=== PATIENT | male | born 1935 | race Caucasian/White ===

== ENCOUNTER 2016-11-13 10:17 | Day surgery (SDC) | payer MEDICARE ==
[2016-11-11 10:51] VITALS: BMI 31.8
[~2016-11-13 10:17] MED LIST: DEXAMETHASONE SOD PHOSPHATE 4 MG/ML 1 ML VIAL IV ONE; FAMOTIDINE 20 MG/2 ML VIAL IV ONE; LACTATED RINGERS 1,000 ML IV SCH; MIDAZOLAM 2 MG/2 ML VIAL IV PRN; ONDANSETRON 4 MG/2 ML VIAL IVP ONE; ceFAZolin 1,000 MG in DEXTROSE/WATER 1 50ML.BAG IV ONE
[2016-11-13] MEDS: OXYMETAZOLINE 0.05% NASL SPRAY 15 ML NASAL ONE ×5 (11:25→11:54)
[2016-11-13] MEDS ORDERED: LIDOCAINE 1% 20 ML VIAL (10MG/ML) FOR IV START INTRADERMA ONE (11:38)
[2016-11-13] MEDS ORDERED: DEXAMETHASONE SOD PHOS (MDV) 100 MG/10 ML VIAL IV ONE (11:44)
[2016-11-13] MEDS ORDERED: PROPOFOL 10 MG/ML 20 ML VIAL IV ONE (12:27)
[2016-11-13] MEDS ORDERED: SUCCINYLCHOLINE CHLORIDE 100 MG/5 ML SYR IV ONE (12:27)
[2016-11-13] MEDS ORDERED: fentaNYL (PF) 50 MCG/ML 2 ML AMP ONE (12:27)
[2016-11-13] MEDS ORDERED: LIDOCAINE 1% INJ 10MG/ML (20 ML MDV) ONE (12:27)
[2016-11-13] MEDS ORDERED: LIDOCAINE 1%-EPI 1:100,000 20 ML VIAL SUBMUCOSAL ONE (12:47)
[2016-11-13] MEDS ORDERED: LACTATED RINGERS 1,000 ML IV ONE (13:18)
--- NOTE | 2016-11-13 13:31 | P.OP ---
Date of Procedure: 11/13/16 Preoperative Diagnosis: Chronic sinusitis Sinonasal polyposis Postoperative Diagnosis: Same Procedure(s) Performed: Bilateral endoscopic sinus surgery including bilateral maxillary antrostomy with removal of tissue from maxillary sinuses, bilateral anterior and posterior ethmoidectomy, bilateral frontal sinusotomy and bilateral sphenoidotomy all with polypectomies Anesthesia: HEIDI Surgeon: Migel Whitten Estimated Blood Loss (ml): 200 Pathology: other (Sinus contents bilateral) Condition: stable Disposition: PACU Indications for Procedure: Patient has had long-term difficulties with nasal airway obstruction and congestion and recurrent sinusitis with sinonasal polyposis noted on physical exam and on computed tomography scan. Operative Findings: Bilateral diffuse sinonasal polyps involving the maxillary and ethmoid sinuses mainly but also minimally in the frontal and sphenoid sinuses the polyps were quite severe and extensive. The middle turbinate on the right was missing and there was a and inferior turbinal maxillary antrostomy on the right noted otherwise. Description of Procedure: The patient was brought in the operative suite and placed in a supine position. The patient underwent induction of general anesthesia with oral endotracheal intubation without difficulty. The patient was prepped and draped in usual aseptic fashion. Original in the operating field for monitoring throughout the case and computed tomography scan was on the computer screen throughout the case for review. 1% lidocaine with [id number] epinephrine was infused submucosally lateral nasal wall bilaterally as well as into the anterior tip of the left middle turbinate and lateral nasal wall bilaterally. His left to work for 7 minutes vasoconstrictive effect and 0 endoscopic examination was performed bilaterally. Beginning on the left the gross polyps were debrided with microdebrider medial and lateral to the middle turbinate. The middle turbinate was intact although there was a rent in this superiorly. Medial to the middle turbinate care was taken to stay below the superior turbinate and this was dissected all the way back to the sphenoid ostium which was opened although was already somewhat open and polyps removed. The middle turbinate was lateralized is a medialized and the maxillary antrostomy was enlarged the expense the anterior and posterior fontanelle. This was obstructed. There were polyps in the sinus which were removed. The left anterior posterior ethmoidectomy performed with the polypectomy also. Frontal sinusotomy was performed with balloon sinus plasty with exploration with the [employer] System[employer] system and the in's frontal sinus was explored. Attention was then turned to the right where the procedures were followed as they were on the left other than the fact that the middle turbinate was not present likely from his previous procedure. Therefore gross polypectomy was performed with maxillary antrostomy with removal of polyps from exercise anterior posterior ethmoidectomy sphenoidotomy and frontal sinusotomy with removal of tissue from the sphenoid sinus and expiration the right frontal sinus. Once this completed accommodation of standard and firm nasal pore nasal dressing direct visualization. The patient was suctioned in oral gastric fashion. The patient was allowed to emerge from general anesthesia having tolerated procedure well. He was excised in the operative suite and transferred postoperative recovery area in satisfactory condition.
[2016-11-13 13:44] VITALS: TEMP 98.2
[2016-11-13] MEDS ORDERED: LEVALBUTEROL NEB 1.25 MG/3 ML AMP INHALATION ONE (13:45)
[2016-11-13] MEDS: HYDROmorphone 1 MG/ML 1 ML SYRINGE IVP PRN ×2 (13:50→13:56)
[2016-11-13 14:05] VITALS: RESP 18
[2016-11-13] MEDS ORDERED: SYMBICORT 160-4.5 MCG INHALER INHALATION STA (14:10)
[2016-11-13 15:48] VITALS: BP 123/62; PULSE 80
== END 2016-11-13 16:50 | disposition home or self-care (01) ==
LOC: OR 10:17
PROVIDERS: ATTEND Otolaryngology
DX: J32.4 Chronic pansinusitis (principal); J33.8 Other polyp of sinus; J34.3 Hypertrophy of nasal turbinates; J45.909 Unspecified asthma, uncomplicated; J44.9 Chronic obstructive pulmonary disease, unspecified; I10 Essential (primary) hypertension; M19.90 Unspecified osteoarthritis, unspecified site; Z85.46 Personal history of malignant neoplasm of prostate; Z85.118 Personal history of other malignant neoplasm of bronchus and lung; Z79.51 Long term (current) use of inhaled steroids; Z79.52 Long term (current) use of systemic steroids; Z79.899 Other long term (current) drug therapy
CPT/HCPCS: 88305; 31255; 31276; J2250; J2405; J2001; J3010; J1170; J0690; J1100; J0330; J2704

== ENCOUNTER → 2021-08-03 | Outpatient (CLI) | payer MEDICARE ==
--- NOTE | 2021-08-03 14:44 | FL ---
EXAMINATION TYPE: FL barium swallow w video DATE OF EXAM: 08/03/2021 COMPARISON: NONE HISTORY: Dysphasia TECHNIQUE: Fluoroscopy. FINDINGS: Fluoroscopic guidance was provided for the procedure performed in conjunction with the [facility] pathology department. Please see complete report forthcoming from the Speech Pathology departmen t. Various consistencies from thin liquid to solids were administered. Fluoroscopy time 44 seconds. Number of images: 0. No aspiration or penetration was evident. No significant pooling was observed in the vallecula. There was normal propulsion of the bolus. IMPRESSION: 1. Normal modified barium swallow.
== END | disposition home or self-care (01) ==
LOC: LABWHC1 11:54
PROVIDERS: ATTEND Internal Medicine
DX: R09.89 Other specified symptoms and signs involving the circulatory and respiratory systems (principal)
CPT/HCPCS: 74230

== ENCOUNTER → 2021-08-27 | Outpatient (CLI) | payer MEDICARE | END | disposition home or self-care (01) | LOC: LABWHC1 11:21 | PROVIDERS: ATTEND Urology | DX: C61 Malignant neoplasm of prostate (principal) | CPT/HCPCS: 36415; 82040; 84153; 84270; 84403 ==

== ENCOUNTER → 2021-08-27 | Outpatient (CLI) | payer MEDICARE ==
--- NOTE | 2021-08-27 12:06 | FL ---
EXAMINATION TYPE: FL barium swallow DATE OF EXAM: 08/27/2021 CLINICAL INDICATION: 85-year-old male dysphagia, R13.10, rule out aspiration. Typical sensation in th roat along with coughing during eating. COMPARISON: 08/03/2021 Total Fluoroscopy Time: 3 minutes 22 seconds 48 images obtained. FINDINGS: A couple episodes of mild aspiration are noted, one very upright swallow and a second during prone sw allowing. The hypopharyngeal anatomy is preserved. The thoracic portion has a normal course and caliber. Mild tertiary peristaltic waves are noted. Blun bashir secondary stripping waves with slight delay in complete clearance of contrast from the lower esop hagus. The mucosa is normal and no persistent filling defect is encountered. There is a small sliding hiatal hernia. Gastroesophageal reflux was not seen during the course of the exam. We note some surgical clips at the right hilum and right lung. IMPRESSION: 1. A couple episodes of mild silent aspiration visualized during the course of the study. If this is felt to be clinically significant, consider follow-up with speech pathology. 2. Mild age-related esophageal dysmotility. 3. Small sliding hiatal hernia.
== END | disposition home or self-care (01) ==
LOC: RADUSWWP 10:26
PROVIDERS: ATTEND Otolaryngology
DX: K44.9 Diaphragmatic hernia without obstruction or gangrene (principal); K22.4 Dyskinesia of esophagus
CPT/HCPCS: 74220

== ENCOUNTER 2023-08-02 18:19 | Inpatient (IN) | payer MEDICARE ==
[2023-08-02] MEDS ORDERED: ACETAMINOPHEN TAB 325 MG TAB PO PRN (19:02)
[2023-08-02] MEDS ORDERED: NALOXONE 0.4 MG/ML 1 ML VIAL IV PRN (19:02)
--- NOTE | 2023-08-02 19:02 | ED ---
General Adult HPI - General Chief complaint: Arrhythmia/Palpitations Stated complaint: bradycardia Time Seen by Provider: 08/02/23 18:22 Source: patient, RN/MD, EMS, old records reviewed Mode of arrival: EMS Limitations: no limitations - History of Present Illness Initial comments: Patient is a pleasant 87-year-old male presenting to the emergency Department with bradycardia. Onset of symptoms was 2 days ago. Patient did complain of some small episodes of skipping in his chest. Patient checked his heart rate at home and was at 40. Patient did go to the emergency department and this was confirmed. Patient did not want to stay however did return again today. Patient again had episodes with heart rate dropping into the 40s. Patient denies lightheadedness despite being documented otherwise differently. Patient denies chest pain. No dyspnea. No weakness. Patient does see Dr. Alberto with cardiology. - Related Data Home Medications Medication Instructions Recorded Confirmed Ascorbic Acid [Vitamin C] 500 mg PO DAILY 11/11/16 03/16/18 B Complex & C No.20/Folic Acid 1 mg PO DAILY 11/11/16 03/16/18 [Nephrocaps Softgel] Calcium/Magnesium/Zinc 1 each PO DAILY 11/11/16 03/16/18 [Nyshkcw-Rihltcnav-Uxpd Tablet] Cholecalciferol [Vitamin D3] 1,000 unit PO DAILY 11/11/16 03/16/18 Cinnamon Bark [Cinnamon] 500 mg PO DAILY 11/11/16 03/16/18 Fluticasone Propion/Salmeterol 1 inhalation PO BID 11/11/16 03/16/18 [Advair 250-50 Diskus] L.acidoph,Paracasei, B.lactis 1 each PO DAILY 11/11/16 03/16/18 [Probiotic] Metoprolol Succinate [Toprol XL] 25 mg PO DAILY 11/11/16 03/16/18 Montelukast [Singulair] 10 mg PO HS 11/11/16 03/16/18 Steele-3 Fatty Acids [Steele-3] 500 mg PO DAILY 11/11/16 03/16/18 Potassium Chloride [Klor-Con] 10 meq PO BID 11/11/16 03/16/18 Spironolactone [Aldactone] 25 mg PO HS 11/11/16 03/16/18 Valsartan 320 mg PO DAILY 11/11/16 03/16/18 amLODIPine [Norvasc] 10 mg PO DAILY 11/11/16 03/16/18 cloNIDine HCL [Catapres] 0.1 mg PO BID 11/11/16 03/16/18 hydrALAZINE HCL [Apresoline] 50 mg PO BID 11/11/16 03/16/18 Leuprolide Acetate [Lupron Depot] 45 mg IM Q180D 11/12/16 03/16/18 Previous Rx's Medication Instructions Recorded Doxycycline [Vibramycin] 100 mg PO BID #28 capsule 03/09/18 Allergies Allergy/AdvReac Type Severity Reaction Status Date / Time Influenza Virus Vaccines Allergy Rash/Hives Verified 03/16/18 09:43 Review of Systems ROS Statement: Those systems with pertinent positive or pertinent negative responses have been documented in the HPI. ROS Other: All systems not noted in ROS Statement are negative. Constitutional: Denies: fever Eyes: Denies: eye pain Respiratory: Denies: dyspnea Cardiovascular: Reports: as per HPI, palpitations. Denies: chest pain Past Medical History Past Medical History: Asthma, Cancer, Hyperlipidemia, Hypertension, Prostate Disorder Additional Past Medical History / Comment(s): HX LUNG AND PROSTATE CANCER. HX HEART MURMUR. HX LBBB,lt. butt. wound History of Any Multi-Drug Resistant Organisms: None Reported Past Surgical History: Cholecystectomy, Joint Replacement Additional Past Surgical History / Comment(s): LT ANGELINA, COLONOSCOPY, BILAT CATARACTS REMOVED, RT LUNG LOBECTOMY Past Anesthesia/Blood Transfusion Reactions: Previous Problems w/ Anesthesia, Motion Sickness Additional Past Anesthesia/Blood Transfusion Reaction / Comment(s): PT STATES "PROLONGED AWAKENING" Past Psychological History: No Psychological Hx Reported Past Alcohol Use History: Occasional Past Drug Use History: None Reported - Past Family History Mother Family Medical History: No Reported History General Exam Limitations: no limitations General appearance: alert, in no apparent distress Head exam: Present: normocephalic Eye exam: Present: normal appearance Neck exam: Present: normal inspection Respiratory exam: Present: normal lung sounds bilaterally Cardiovascular Exam: Present: regular rate, normal rhythm GI/Abdominal exam: Present: soft. Absent: tenderness Extremities exam: Present: normal inspection. Absent: pedal edema, calf tenderness Neurological exam: Present: alert Psychiatric exam: Present: normal affect, normal mood Skin exam: Present: normal color Course Vital Signs 08/02/23 18:49 Temperature 97.6 F Pulse Rate 86 Respiratory 19 Rate Blood Pressure 153/74 O2 Sat by Pulse 91 L Oximetry Medical Decision Making - Medical Decision Making Was pt. sent in by a medical professional or institution (, MARISA, HAND SIGN WRITER, urgent care, hospital, or fci...) When possible be specific @ -Patient was sent from [facility] Did you speak to anyone other than the patient for history (EMS, parent, family, police, friend...)? What history was obtained from this source @ -Did speak with transferring physician Dr. Quiles Did you review nursing and triage notes (agree or disagree)? Why? @ -I reviewed and agree with nursing and triage notes Were old charts reviewed (outside hosp., previous admission, EMS record, old EKG, old radiological studies, urgent care reports/EKG's, fci records)? Report findings @ -Chart reviewed from [facility] Differential Diagnosis (chest pain, altered mental status, abdominal pain women, abdominal pain men, vaginal bleeding, weakness, fever, dyspnea, syncope, headache, dizziness, GI bleed, back pain, seizure, CVA, palpatations, mental health, musculoskeletal)? @ -Differential Palpitations Ventricular arrhythmias, atrial arrhythmias, myocardial infarction, anemia, thyrotoxicosis, electrolyte imbalance, hypokalemia, pulmonary embolism, pulmonary disease, drugs, alcohol, anxiety, stress.... This is not meant to be an all-inclusive list. EKG interpreted by me (3pts min.). @ -As above X-rays interpreted by me (1pt min.). @ -None done CT interpreted by me (1pt min.). @ -None done U/S interpreted by me (1pt. min.). @ -None done What testing was considered but not performed or refused? (CT, X-rays, U/S, labs)? Why? @ -None What meds were considered but not given or refused? Why? @ -None Did you discuss the management of the patient with other professionals (professionals i.e. , MARISA, HAND SIGN WRITER, lab, RT, psych nurse, social work supervisor, plastics heat welder, teacher, senior administrative services officer, nurse outreach case manager)? Give summary @ -Case was discussed with practitioner Jefe, who will admit covering hospital call. Was smoking cessation discussed for >3mins.? @ -No Was critical care preformed (if so, how long)? @ -No Were there social determinants of health that impacted care today? How? (Homelessness, low income, unemployed, alcoholism, drug addiction, transportation, low edu. Level, literacy, decrease access to med. care, fdc, rehab)? @ -No Was there de-escalation of care discussed even if they declined (Discuss DNR or withdrawal of care, Hospice)? DNR status @ -No What co-morbidities impacted this encounter? (DM, HTN, Smoking, COPD, CAD, Cancer, CVA, ARF, Chemo, Hep., AIDS, mental health diagnosis, sleep apnea, morbid obesity)? @ -None Was patient admitted / discharged? Hospital course, mention meds given and route, prescriptions, significant lab abnormalities, going to OR and other pertinent info. @ -Patient will be admitted with cardiac consults. Admission orders written. Patient will be kept on monitor. Undiagnosed new problem with uncertain prognosis? @ -No Drug Therapy requiring intensive monitoring for toxicity (Heparin, Nitro, Insulin, Cardizem)? @ -No Were any procedures done? @ -No Diagnosis/symptom? @ -Bradycardia Acute, or Chronic, or Acute on Chronic? @ -Acute Uncomplicated (without systemic symptoms) or Complicated (systemic symptoms)? @ -default Side effects of treatment? @ -No Exacerbation, Progression, or Severe Exacerbation? @ -No Poses a threat to life or bodily function? How? (Chest pain, [place], [place], pneumonia, PE, COPD, DKA, ARF, appy, cholecystitis, CVA, Diverticulitis, Homicidal, Suicidal, threat to staff... and all critical care pts) @ -No Disposition Clinical Impression: Bradycardia Disposition: ADMITTED IP TO THIS HOSP Is patient prescribed a controlled substance at d/c from ED?: No Referrals: None,Stated [Primary Care Provider] - 1-2 days Time of Disposition: 19:02
[2023-08-02] MEDS: SODIUM CHLORIDE 0.9% 1,000 ML IV SCH (20:06)
--- NOTE | 2023-08-03 07:36 | XR ---
EXAMINATION TYPE: XR chest 1V DATE OF EXAM: 08/03/2023 COMPARISON: None INDICATION: Bradycardia TECHNIQUE: Single frontal view of the chest is obtained. Patient is rotated to the right FINDINGS: The heart size is normal. The pulmonary vasculature is normal. Minimal infiltrate is along the lateral right diaphragm. IMPRESSION: 1. Minimal atelectasis right lateral lung field.
[2023-08-03] MEDS ORDERED: BENZONATATE 100 MG CAP PO PRN (09:04)
[2023-08-03] MEDS ORDERED: NON FORMULARY DRUG (Levalbuterol Hfa Inhaler 200 PUFF/9 GM Gm) INHALATION PRN (09:04)
[2023-08-03] MEDS ORDERED: LEUPROLIDE ACETATE 45 MG SYRINGEKIT IM SCH (09:15)
[2023-08-03 09:52] LABS: Basophils % (A) 1 %; Eosinophils # (A) 0.4 k/uL (0-0.7); Eosinophils % (A) 4 %; HCT 45.8 % (39.0-53.0); HGB 15.3 gm/dL (13.0-17.5); Lymphocytes # (A) 1.7 k/uL (1.0-4.8); Lymphocytes % (A) 17 %; MCH 29.5 pg (25.0-35.0); MCHC 33.5 g/dL (31.0-37.0); MCV 88.2 fL (80.0-100.0); Mean Platelet Volume 8.9; Monocytes # (A) 0.6 k/uL (0-1.0); Monocytes % (A) 6 %; Neutrophils # (A) 6.9 k/uL (1.3-7.7); Neutrophils % (A) 70 %; Platelet Count 207 k/uL (150-450); RBC 5.19 m/uL (4.30-5.90); RDW 14.3 % (11.5-15.5); WBC 9.9 k/uL (3.8-10.6)
[2023-08-03] MEDS: ASPIRIN 81 MG PO SCH (09:58)
[2023-08-03] MEDS: VALSARTAN 40 MG TAB PO SCH (09:58)
[2023-08-03 10:07] LABS: Prothrombin Time 11.2 sec (10.0-12.5)
[2023-08-03 10:56] LABS: ALT 26 U/L (4-49); AST 27 U/L (17-59); African American GFR (CKD) >90 (>60 ml/min/1.73 sqM); Albumin 3.5 g/dL (3.5-5.0); Albumin/Globulin Ratio 1.3; Alkaline Phosphatase 83 U/L (38-126); Anion Gap 10 mmol/L; Blood Urea Nitrogen 19 mg/dL (9-20); Calcium 9.1 mg/dL (8.4-10.2); Carbon Dioxide 26 mmol/L (22-30); Chloride 104 mmol/L (98-107); Globulin 2.6 g/dL; Glucose 170 mg/dL (74-99); Magnesium 1.8 mg/dL (1.6-2.3); Non-African American GFR(CKD) 87 (>60 ml/min/1.73 sqM); Phosphorus 3.5 mg/dL (2.5-4.5); Sodium 140 mmol/L (137-145); Total Bilirubin 0.8 mg/dL (0.2-1.3); Total Protein 6.1 g/dL (6.3-8.2)
--- NOTE | 2023-08-03 11:10 | P.CRDCN ---
History of Present Illness Consult date: 08/03/23 Chief complaint: Palpitations History of present illness: The patient is an 87-year-old gentleman who sees regularly regular basis with a past medical history significant for hypertension and dyslipidemia was transferred from [facility] for further evaluation of the bradycardia. The patient was checking his pulse at home using pulse oximetry and he noticed that his pulse has been in the 40s. He did not have any dizziness or lightheadedness and no presyncope or syncope and no symptoms of chest pain or chest discomfort but he was experiencing intermittent episodes of palpitation. He decided to come in to check himself. He underwent further evaluation including an EKG and that showed sinus mechanism with sinus arrhythmia. I did review the previous medical record from [facility] and that showed also sinus mechanism was ill LBBB and echo be. During the hospital stay here [facility] he did not have any bradycardia. His heart rate has been in the 60s and 70s review is on beta grayson with metoprolol that is on hold at this point. The examination is remarkable for regular rhythm with significant systolic murmur at the right upper sternal border consistent with aortic stenosis murmur likely and clear breathing sounds bilaterally and no lower extremities edema noted. Assessment Bradycardia by history. The patient likely was not bradycardic and the monitor detecting bradycardia because of ectopy Abnormal EKG with LBBB. Hypertension Dyslipidemia Cardiac murmur Plan Obtain further cardiac testing including TSH and free T4 Obtain an echocardiogram was Doppler Continue holding beta grayson at this point Monitor the rhythm overnight He might benefit from an event monitor as an outpatient Follow-up with the patient Past Medical History Past Medical History: Asthma, Cancer, Hyperlipidemia, Hypertension, Prostate Disorder Additional Past Medical History / Comment(s): HX LUNG AND PROSTATE CANCER. HX HEART MURMUR. HX LBBB,lt. butt. wound History of Any Multi-Drug Resistant Organisms: None Reported Past Surgical History: Cholecystectomy, Joint Replacement Additional Past Surgical History / Comment(s): LT ANGELINA, COLONOSCOPY, BILAT CATARACTS REMOVED, RT LUNG LOBECTOMY Past Anesthesia/Blood Transfusion Reactions: Previous Problems w/ Anesthesia, Motion Sickness Additional Past Anesthesia/Blood Transfusion Reaction / Comment(s): PT STATES "PROLONGED AWAKENING" Past Psychological History: No Psychological Hx Reported Past Alcohol Use History: Occasional Past Drug Use History: None Reported - Past Family History Mother Family Medical History: No Reported History Medications and Allergies Home Medications Medication Instructions Recorded Confirmed Type Cinnamon Bark [Cinnamon] 1,000 mg PO HS 11/11/16 08/02/23 History L.acidoph,Paracasei, B.lactis 1 cap PO HS 11/11/16 08/02/23 History [Probiotic] Montelukast [Singulair] 10 mg PO HS 11/11/16 08/02/23 History Spironolactone [Aldactone] 25 mg PO DAILY 11/11/16 08/02/23 History amLODIPine [Norvasc] 10 mg PO DIRECTED 11/11/16 08/02/23 History Leuprolide Acetate [Lupron Depot] 1 dose IM Q180D 11/12/16 08/02/23 History Aspirin EC [Ecotrin Low Dose] 81 mg PO DAILY 08/02/23 08/02/23 History Atorvastatin [Lipitor] 10 mg PO HS 08/02/23 08/02/23 History Benzonatate [Tessalon Perles] 100 mg PO DIRECTED PRN 08/02/23 08/02/23 History Cholecalciferol [Vitamin D3 (25 25 mcg PO DAILY 08/02/23 08/02/23 History Mcg = 1000 Iu)] Fluticasone/Umeclidin/Vilanter 1 puff INHALATION RT-DAILY 08/02/23 08/02/23 History [Trelegy Ellipta 200-62.5-25] Iron Glycinate 28mg 28 mg PO HS 08/02/23 08/02/23 History Levalbuterol Hfa Inhaler [Xopenex 1 puff INHALATION DIRECTED PRN 08/02/23 08/02/23 History Hfa Inhaler] Levocetirizine Dihydrochloride 5 mg PO HS 08/02/23 08/02/23 History [Xyzal] Magnesium Citrate 200mg 200 mg PO DAILY 08/02/23 08/02/23 History Metoprolol Succinate [Metoprolol 25 mg PO DAILY 08/02/23 08/02/23 History Succinate ER] Multivitamins, Thera [Multivitamin 1 tab PO DAILY 08/02/23 08/02/23 History (formulary)] Valsartan 40 mg PO DAILY 08/02/23 08/02/23 History Vit C/E/Zn/Coppr/Lutein/Zeaxan 1 cap PO DAILY 08/02/23 08/02/23 History [Preservision Areds 2 Softgel] Allergies Allergy/AdvReac Type Severity Reaction Status Date / Time Influenza Virus Vaccines Allergy Rash/Hives Verified 08/02/23 19:40 albuterol AdvReac heart Verified 08/02/23 20:05 flutters Physical Exam Vitals: Vital Signs Temp Pulse Resp BP Pulse Ox 08/03/23 06:26 97.8 F 80 16 140/74 96 08/03/23 05:31 96 08/03/23 03:17 98.1 F 80 16 130/60 94 L 08/02/23 22:00 81 19 135/77 91 L 08/02/23 18:49 97.6 F 86 19 153/74 91 L Intake and Output 08/02/23 08/03/23 08/03/23 22:59 06:59 14:59 Other: Weight 90.718 kg Results 08/03/23 09:29 08/03/23 09:29 Cardiac Enzymes 08/02/23 08/03/23 08/03/23 Range/Units 21:15 00:43 09:29 AST 27 (17-59) U/L Troponin I <0.012 <0.012 (0.000-0.034) ng/mL Coagulation 08/03/23 Range/Units 09:29 PT 11.2 (10.0-12.5) sec CBC 08/03/23 Range/Units 09:29 WBC 9.9 (3.8-10.6) k/uL RBC 5.19 (4.30-5.90) m/uL Hgb 15.3 (13.0-17.5) gm/dL Hct 45.8 (39.0-53.0) % Plt Count 207 (150-450) k/uL Comprehensive Metabolic Panel 08/03/23 Range/Units 09:29 Sodium 140 (137-145) mmol/L Potassium 4.0 (3.5-5.1) mmol/L Chloride 104 (98-107) mmol/L Carbon Dioxide 26 (22-30) mmol/L BUN 19 (9-20) mg/dL Creatinine 0.66 (0.66-1.25) mg/dL Glucose 170 H (74-99) mg/dL Calcium 9.1 (8.4-10.2) mg/dL AST 27 (17-59) U/L ALT 26 (4-49) U/L Alkaline Phosphatase 83 (38-126) U/L Total Protein 6.1 L (6.3-8.2) g/dL Albumin 3.5 (3.5-5.0) g/dL Current Medications Generic Name Dose Route Start Last Admin Trade Name Freq PRN Reason Stop Dose Admin Acetaminophen 650 mg 08/02/23 19:02 Acetaminophen Tab 325 Mg Tab PO Q6HR PRN Mild Pain or Fever > 100.5 Aspirin 81 mg 08/03/23 09:15 08/03/23 09:58 Aspirin 81 Mg PO 81 mg DAILY SHE Administration Atorvastatin Calcium 10 mg 08/03/23 21:00 Atorvastatin 10 Mg Tab PO HS SHE Benzonatate 100 mg 08/03/23 09:04 Benzonatate 100 Mg Cap PO TID PRN Cough Budesonide/Formoterol Fumarate 2 puff 08/03/23 20:00 Symbicort 80-4.5 Mcg Inhaler INHALATION RT-BID [facility] Cholecalciferol 25 mcg 08/04/23 09:00 Cholecalciferol 25 Mcg (1000 Iu) Tablet PO DAILY [facility] Sodium Chloride 1,000 mls @ 20 mls/hr 08/02/23 19:15 08/02/23 20:06 Saline 0.9% IV 20 mls/hr .Q24H SHE Administration Ipratropium [place] 0.5 mg 08/03/23 12:00 Ipratropium 0.5 Mg/2.5 Ml Nebu INHALATION RT-QID SHE Montelukast Sodium 10 mg 08/03/23 21:00 Montelukast 10 Mg Tab PO HS SHE Naloxone HCl 0.2 mg 08/02/23 19:02 Naloxone 0.4 Mg/Ml 1 Ml Vial IV Q2M PRN Opioid Reversal Non-Formulary Medication 1 puff 08/03/23 09:04 Levalbuterol Hfa Inhaler INHALATION QID PRN Shortness Of Breath Spironolactone 25 mg 08/03/23 10:45 Spironolactone 25 Mg Tab PO DAILY [facility] Valsartan 40 mg 08/03/23 10:00 08/03/23 09:58 Valsartan 40 Mg Tab PO 40 mg DAILY SHE Administration Intake and Output 08/02/23 08/03/23 08/03/23 22:59 06:59 14:59 Other: Weight 90.718 kg 08/03/23 09:29 08/03/23 09:29
[2023-08-03] MEDS: SPIRONOLACTONE 25 MG TAB PO SCH (11:49)
[2023-08-03] MEDS: IPRATROPIUM 0.5 MG/2.5 ML NEBU INHALATION SCH ×3 (11:56→20:24)
--- NOTE | 2023-08-03 12:46 | P.HPIM ---
History of Present Illness This is a pleasant 87 years old male with multiple medical problems. He was transferred from [facility] after he visited the emergency room for 3 consecutive day for bradycardia. It is documented in the transfer paper that He has heart fluttering however when I asked the patient he says he was checking his pulse oximetry when he noticed his heart rate recorded and is on 43 but he denies chest pain dizziness lightheadedness, no shortness of breath or coughing or any other symptoms. He denies palpitation. He denies any change in urine or bowel habits. No fever. Patient since admission his heart rate has been stable around 80-86. Restoril vitals are stable His metoprolol 25 mg by mouth daily has been held He is continued on aspirin and Diovan 40 mg. Troponin 2 are negative. Chest x-ray showing minimal atelectasis with no acute process EKG showing normal sinus rhythm at 83 with left bundle-branch block CBC and INR are unremarkable. TSH was checked at [facility] was normal at 1.12. Review of Systems Review of systems CONSTITUTIONAL: No fever, no malaise, no fatigue. HEENT: No recent visual problems or hearing problems. Denied any sore throat. CARDIOVASCULAR: No orthopnea, PND, no palpitations, no syncope. PULMONARY: No shortness of breath, no cough, no hemoptysis. GASTROINTESTINAL: No diarrhea, no nausea, no vomiting, no abdominal pain. Normoa ctive bowel sounds. NEUROLOGICAL: No headaches, no weakness, no numbness. HEMATOLOGICAL: Denies any bleeding or petechiae. GENITOURINARY: Denies any burning micturition, frequency, or urgency. MUSCULOSKELETAL/RHEUMATOLOGICAL: Denies any joint pain, swelling, or any muscle pain. ENDOCRINE: Denies any polyuria or polydipsia. Past Medical History Past Medical History: Asthma, Cancer, Hyperlipidemia, Hypertension, Prostate Disorder Additional Past Medical History / Comment(s): HX LUNG AND PROSTATE CANCER. HX HEART MURMUR. HX LBBB,lt. butt. wound History of Any Multi-Drug Resistant Organisms: None Reported Past Surgical History: Cholecystectomy, Joint Replacement Additional Past Surgical History / Comment(s): LT ANGELINA, COLONOSCOPY, BILAT CATARACTS REMOVED, RT LUNG LOBECTOMY Past Anesthesia/Blood Transfusion Reactions: Previous Problems w/ Anesthesia, Motion Sickness Additional Past Anesthesia/Blood Transfusion Reaction / Comment(s): PT STATES "PROLONGED AWAKENING" Past Psychological History: No Psychological Hx Reported Past Alcohol Use History: Occasional Past Drug Use History: None Reported - Past Family History Mother Family Medical History: No Reported History Medications and Allergies Home Medications Medication Instructions Recorded Confirmed Type Cinnamon Bark [Cinnamon] 1,000 mg PO HS 11/11/16 08/02/23 History L.acidoph,Paracasei, B.lactis 1 cap PO HS 11/11/16 08/02/23 History [Probiotic] Montelukast [Singulair] 10 mg PO HS 11/11/16 08/02/23 History Spironolactone [Aldactone] 25 mg PO DAILY 11/11/16 08/02/23 History amLODIPine [Norvasc] 10 mg PO DIRECTED 11/11/16 08/02/23 History Leuprolide Acetate [Lupron Depot] 1 dose IM Q180D 11/12/16 08/02/23 History Aspirin EC [Ecotrin Low Dose] 81 mg PO DAILY 08/02/23 08/02/23 History Atorvastatin [Lipitor] 10 mg PO HS 08/02/23 08/02/23 History Benzonatate [Tessalon Perles] 100 mg PO DIRECTED PRN 08/02/23 08/02/23 History Cholecalciferol [Vitamin D3 (25 25 mcg PO DAILY 08/02/23 08/02/23 History Mcg = 1000 Iu)] Fluticasone/Umeclidin/Vilanter 1 puff INHALATION RT-DAILY 08/02/23 08/02/23 History [Trelegy Ellipta 200-62.5-25] Iron Glycinate 28mg 28 mg PO HS 08/02/23 08/02/23 History Levalbuterol Hfa Inhaler [Xopenex 1 puff INHALATION DIRECTED PRN 08/02/23 08/02/23 History Hfa Inhaler] Levocetirizine Dihydrochloride 5 mg PO HS 08/02/23 08/02/23 History [Xyzal] Magnesium Citrate 200mg 200 mg PO DAILY 08/02/23 08/02/23 History Metoprolol Succinate [Metoprolol 25 mg PO DAILY 08/02/23 08/02/23 History Succinate ER] Multivitamins, Thera [Multivitamin 1 tab PO DAILY 08/02/23 08/02/23 History (formulary)] Valsartan 40 mg PO DAILY 08/02/23 08/02/23 History Vit C/E/Zn/Coppr/Lutein/Zeaxan 1 cap PO DAILY 08/02/23 08/02/23 History [Preservision Areds 2 Softgel] Allergies Allergy/AdvReac Type Severity Reaction Status Date / Time Influenza Virus Vaccines Allergy Rash/Hives Verified 08/02/23 19:40 albuterol AdvReac heart Verified 08/02/23 20:05 flutters Physical Exam Vitals: Vital Signs Temp Pulse Resp BP Pulse Ox 08/03/23 06:26 97.8 F 80 16 140/74 96 08/03/23 05:31 96 08/03/23 03:17 98.1 F 80 16 130/60 94 L 08/02/23 22:00 81 19 135/77 91 L 08/02/23 18:49 97.6 F 86 19 153/74 91 L Intake and Output 08/02/23 08/03/23 08/03/23 22:59 06:59 14:59 Other: Weight 90.718 kg GENERAL: The patient is alert and oriented x3, not in any acute distress. Well developed, well nourished. HEENT: Pupils are round and equally reacting to light. EOMI. No scleral icterus. No conjunctival pallor. Normocephalic, atraumatic. No pharyngeal erythema. No thyromegaly. CARDIOVASCULAR: S1 and S2 present. No murmurs, rubs, or gallops. PULMONARY: Chest is clear to auscultation, no wheezing , no crackles. ABDOMEN: Soft, nontender, nondistended, normoactive bowel sounds. No palpable organomegaly. MUSCULOSKELETAL: No joint swelling or deformity. EXTREMITIES: No cyanosis, clubbing, or pedal edema. NEUROLOGICAL: Gross neurological examination did not reveal any focal deficits. SKIN: No rashes. no petechiae. Results CBC & Chem 7: 08/03/23 09:29 08/03/23 09:29 Assessment and Plan Assessment: Bradycardia History of asthma, not an active issue Hypertension. Hyperlipidemia History of prostate and lung cancer Plan: Continue with holding metoprolol Telemetry monitoring Cardiology team on the case Check echocardiogram DVT prophylaxis subcutaneous heparin GI prophylaxis Pepcid
[2023-08-03] MEDS: SYMBICORT 80-4.5 MCG INHALER INHALATION SCH (20:24)
[2023-08-03] MEDS: SODIUM CHLORIDE 0.9% 1,000 ML IV SCH (21:15)
[2023-08-03] MEDS: HEPARIN SODIUM,PORCINE 5,000 UNIT/ML 1 ML VIAL SQ SCH (21:48)
[2023-08-03] MEDS: MONTELUKAST 10 MG TAB PO SCH (21:48)
[2023-08-03] MEDS: FAMOTIDINE 20 MG/2 ML VIAL IV SCH (21:48)
[2023-08-03] MEDS: ATORVASTATIN 10 MG TAB PO SCH (21:48)
[2023-08-03 23:15] LABS: T4, Free (Free Thyroxine) 1.14 ng/dL (0.80-1.80)
[2023-08-04] MEDS ORDERED: IPRATROPIUM-ALBUTEROL 3 ML NEB INHALATION STA (06:59)
[2023-08-04] MEDS ORDERED: IPRATROPIUM-ALBUTEROL 3 ML NEB INHALATION PRN (06:59)
[2023-08-04] MEDS ORDERED: NITROGLYCERIN SL TABS 0.4 MG TAB SUBLINGUAL PRN (08:16)
[2023-08-04] MEDS: ASPIRIN 81 MG PO SCH (08:32)
[2023-08-04] MEDS: CHOLECALCIFEROL 25 MCG (1000 IU) TABLET PO SCH (08:32)
[2023-08-04] MEDS: SPIRONOLACTONE 25 MG TAB PO SCH (08:32)
[2023-08-04] MEDS: HEPARIN SODIUM,PORCINE 5,000 UNIT/ML 1 ML VIAL SQ SCH ×2 (08:38→21:52)
[2023-08-04] MEDS: IPRATROPIUM 0.5 MG/2.5 ML NEBU INHALATION SCH ×4 (09:17→20:08)
[2023-08-04] MEDS: SYMBICORT 80-4.5 MCG INHALER INHALATION SCH ×2 (09:17→20:08)
[2023-08-04] MEDS: METOPROLOL SUCCINATE (ER) 25 MG TAB.ER.24H PO SCH (09:38)
[2023-08-04] MEDS: FAMOTIDINE 20 MG/2 ML VIAL IV SCH ×2 (09:38→21:55)
[2023-08-04] MEDS: VALSARTAN 40 MG TAB PO SCH (09:52)
[2023-08-04] MEDS: SODIUM CHLORIDE 0.9% 1,000 ML IV SCH (09:54)
--- NOTE | 2023-08-04 12:35 | P.PN ---
Subjective HISTORY OF PRESENT ILLNESS: The patient is an 87-year-old gentleman who sees regularly regular basis with a past medical history significant for hypertension and dyslipidemia was transferred from [facility] for further evaluation of the bradycardia. The patient was checking his pulse at home using pulse oximetry and he noticed that his pulse has been in the 40s. He did not have any dizziness or lightheadedness and no presyncope or syncope and no symptoms of chest pain or chest discomfort but he was experiencing intermittent episodes of palpitation. He decided to come in to check himself. He underwent further evaluation including an EKG and that showed sinus mechanism with sinus arrhythmia. I did review the previous medical record from [facility] and that showed also sinus mechanism was ill LBBB and echo be. During the hospital stay here [facility] he did not have any bradycardia. His heart rate has been in the 60s and 70s review is on beta grayson with metoprolol that is on hold at this point. The examination is remarkable for regular rhythm with significant systolic murmur at the right upper sternal border consistent with aortic stenosis murmur likely and clear breathing sounds bilaterally and no lower extremities edema noted. 08/04/2023 Patient examined this morning in the emergency room. The patient currently denies chest pain or pressure. He denies shortness of breath. Patient's beta grayson was placed on hold. Telemetry reveals sinus rhythm with PVCs. Blood pressure stable. PHYSICAL EXAM: VITAL SIGNS: Reviewed. GENERAL: Well-developed in no acute distress. NECK: Supple. No JVD or thyromegaly LUNGS: Respirations even and unlabored. Lungs essentially clear to auscultation bilaterally. HEART: Regular rate and rhythm. S1 and S2 heard. Systolic murmur noted EXTREMITIES: Normal range of motion. No clubbing or cyanosis. Peripheral pulses intact. No lower extremity edema ASSESSMENT: Bradycardia, ruled out as pulse ox at home incorrectly reading heart rate,, telemetry reveals sinus mechanism with PVCs Hypertension Hyperlipidemia Known left bundle-branch block PLAN: Echocardiogram has been ordered. Await results Resume metoprolol succinate TSH checked and within normal limits Continue telemetry monitoring Patient is currently stable from a cardiac perspective Patient to follow-up post discharge with Dr. Alberto Nurse practitioner note has been reviewed by physician. Signing provider agrees with the documented findings, assessment, and plan of care. Objective - Vital Signs Vital signs: Vital Signs Temp 97.6 F 01/15/24 08:05 Pulse 85 08/04/23 12:26 Resp 16 08/04/23 08:05 BP 143/72 08/04/23 08:05 Pulse Ox 92 L 08/04/23 09:17 FiO2 Intake & Output 08/03/23 08/04/23 08/04/23 18:59 06:59 18:59 Intake Total 0 Output Total 800 Balance -800 Weight 90.718 kg Intake: Intake, IV Titration 0 Amount Sodium Chloride 0.9% 1, 0 000 ml @ 20 mls/hr IV . Q24H [facility] Rx#:[id number] Output: Urine 800 Other: Voiding Method External Catheter External Catheter - Labs CBC & Chem 7: 08/03/23 09:29 08/03/23 09:29
--- NOTE | 2023-08-04 17:53 | CA ---
Transthoracic Echo Report Name: Hola Bell Age: 87 Gender: M : 1935 Exam Date: 08/04/2023 11:28 Exam Location: [place] [facility] Ht (in): 67 Wt (lb): 200 Ordering Physician: Rik West MD ([id number]) Attending/Referring Phys: Compensation Business Partner Robert Cadet Procedure CPT: Indications: Bradycardia Cardiac Hx: Technical Quality: Technically difficult study Contrast 1: Definity Total Dose (mL): 2 Contrast 2: Total Dose (mL): MEASUREMENTS (Male / Female) Normal Values 2D ECHO LV Diastolic Diameter PLAX 4.3 cm 4.2 - 5.9 / 3.9 - 5.3 cm LV Systolic Diameter PLAX 3.6 cm IVS Diastolic Thickness 1.0 cm 0.6 - 1.0 / 0.6 - 0.9 cm LVPW Diastolic Thickness 1.2 cm 0.6 - 1.0 / 0.6 - 0.9 cm LV Relative Wall Thickness 0.5 RV Internal Dim ED PLAX 3.1 cm LVOT Diameter 1.8 cm Aortic Root Diameter 2.7 cm LA Systolic Diameter LX 3.4 cm 3.0 - 4.0 / 2.7 - 3.8 cm LV Diastolic Volume MOD BP 37.5 cm??? 67 - 155 / 56 - 104 cm??? LV Systolic Volume MOD BP 20.0 cm??? 22 - 58 / 19 - 49 cm??? LV Ejection Fraction MOD BP 46.6 % >= 55 % LV Cardiac Index MOD BP 649.2 cm???/min???m??? LV Diastolic Volume MOD 4C 55.4 cm??? LV Systolic Volume MOD 4C 28.6 cm??? LV Ejection Fraction MOD 4C 48.4 % LV Cardiac Index MOD 4C 997.0 cm???/min???m??? LV Diastolic Length 4C 7.3 cm LV Systolic Length 4C 6.5 cm LV Diastolic Volume MOD 2C 24.5 cm??? LV Systolic Volume MOD 2C 14.1 cm??? LV Ejection Fraction MOD 2C 42.4 % LV Cardiac Index MOD 2C 385.6 cm???/min???m??? LV Diastolic Length 2C 6.8 cm LV Systolic Length 2C 6.5 cm LA Volume 46.9 cm??? 18 - 58 / 22 - 52 cm??? LA Volume Index 22.3 cm???/m??? 16 - 28 cm???/m??? DOPPLER AV Peak Velocity 212.5 cm/s AV Peak Gradient 18.1 mmHg AV Mean Velocity 162.9 cm/s AV Mean Gradient 11.5 mmHg AV Velocity Time Integral 48.3 cm LVOT Peak Velocity 90.7 cm/s LVOT Peak Gradient 3.3 mmHg LVOT Velocity Time Integral 18.6 cm LVOT Stroke Volume 45.5 cm??? LVOT Stroke Volume Index 22.5 ml/m??? LVOT Cardiac Index 1690.2 cm???/min???m??? AV Area Cont Eq vti 0.9 cm??? AV Area Cont Eq pk 1.0 cm??? MV Peak Velocity 165.0 cm/s MV Peak Gradient 10.9 mmHg MV Mean Velocity 76.9 cm/s MV Mean Gradient 3.0 mmHg MV Velocity Time Integral 48.7 cm MR Peak Velocity 391.2 cm/s MR Peak Gradient 61.2 mmHg Mitral E Point Velocity 90.2 cm/s Mitral A Point Velocity 152.6 cm/s Mitral E to A Ratio 0.6 MV Deceleration Time 324.0 ms MV E' Velocity 4.2 cm/s Mitral E to MV E' Ratio 21.7 TR Peak Velocity 250.3 cm/s TR Peak Gradient 25.1 mmHg FINDINGS Left Ventricle Normal LV size and wall thickness. Left ventricular ejection fraction is estimated at 55-60 %. Right Ventricle Normal right ventricular size. RVSP= 37mmHg. Right Atrium Normal right atrial size. Left Atrium Normal left atrial size. LA volume index= 23ml/m2 Mitral Valve Mitral valve not well visualized. At least moderate mitral annulus calcification. Mild mitral stenosis. Moderate MR. Aortic Valve Moderate AV calcification. AV peak gradient= 18mmHg. Mean gradient= 11.5mmHg. Tricuspid Valve Structurally normal tricuspid valve. Pulmonic Valve Pulmonic valve not well visualized. No pulmonic regurgitation. Pericardium Not well visualized. Grossly normal. Aorta Normal size aortic root. CONCLUSIONS Normal LV size and function Calcific aortic valve with at least mild stenosis Previewed by: Dr. Elias Mehta MD (Electronically Signed) Final Date: 04 August 2023 17:52
[2023-08-04] MEDS: ATORVASTATIN 10 MG TAB PO SCH (21:46)
[2023-08-04] MEDS: MONTELUKAST 10 MG TAB PO SCH (21:46)
[2023-08-05] MEDS: SYMBICORT 80-4.5 MCG INHALER INHALATION SCH ×2 (08:11→19:41)
[2023-08-05] MEDS: IPRATROPIUM 0.5 MG/2.5 ML NEBU INHALATION SCH ×4 (08:12→19:41)
[2023-08-05] MEDS: SPIRONOLACTONE 25 MG TAB PO SCH (08:58)
[2023-08-05] MEDS: ASPIRIN 81 MG PO SCH (08:58)
[2023-08-05] MEDS: HEPARIN SODIUM,PORCINE 5,000 UNIT/ML 1 ML VIAL SQ SCH ×2 (08:58→20:29)
[2023-08-05] MEDS: FAMOTIDINE 20 MG/2 ML VIAL IV SCH ×2 (08:58→20:29)
[2023-08-05] MEDS: METOPROLOL SUCCINATE (ER) 25 MG TAB.ER.24H PO SCH ×3 (08:58→12:22)
[2023-08-05] MEDS: VALSARTAN 40 MG TAB PO SCH (08:58)
[2023-08-05] MEDS: CHOLECALCIFEROL 25 MCG (1000 IU) TABLET PO SCH (08:58)
--- NOTE | 2023-08-05 10:03 | P.DS ---
Providers Date of admission: 08/02/23 19:04 Attending physician: Fredo Johnson Consults: 08/02/23 19:02 Consult Physician Routine Consulting Provider: Jake Alberto Consult Reason/Comments: bradycardia Do you want consulting provider notified?: Yes Primary care physician: Stated None Hospital Course: Please consider this note as progress note. This is a pleasant 87 years old male with multiple medical problems. He was transferred from [facility] after he visited the emergency room for 3 consecutive day for bradycardia. It is documented in the transfer paper that He has heart fluttering however when I asked the patient he says he was checking his pulse oximetry when he noticed his heart rate recorded and is on 43 but he denies chest pain dizziness lighthe adedness, no shortness of breath or coughing or any other symptoms. He denies palpitation. He denies any change in urine or bowel habits. No fever. Patient since admission his heart rate has been stable around 80-86. Restoril vitals are stable His metoprolol 25 mg by mouth daily has been held He is continued on aspirin and Diovan 40 mg. Troponin 2 are negative. Chest x-ray showing minimal atelectasis with no acute process EKG showing normal sinus rhythm at 83 with left bundle-branch block CBC and INR are unremarkable. TSH was checked at [facility] was normal at 1.12. 08/04/2023 Patient looks comfortable, relaxed at baseline. Denies chest pain or dyspnea. No dizziness. 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 Keep monitoring for now and discharge was held Physical exam: GENERAL: The patient is alert and oriented x3, not in any acute distress. Well developed, well nourished. HEENT: Pupils are round and equally reacting to light. EOMI. No scleral icterus. No conjunctival pallor. Normocephalic, atraumatic. No pharyngeal erythema. No thyromegaly. CARDIOVASCULAR: S1 and S2 present. No murmurs, rubs, or gallops. PULMONARY: Chest is clear to auscultation, no wheezing , no crackles. ABDOMEN: Soft, nontender, nondistended, normoactive bowel sounds. No palpable organomegaly. MUSCULOSKELETAL: No joint swelling or deformity. EXTREMITIES: No cyanosis, clubbing, or pedal edema. NEUROLOGICAL: Gross neurological examination did not reveal any focal deficits. SKIN: No rashes. no petechiae. Assessment: Bradycardia History of asthma, not an active issue Hypertension. Hyperlipidemia History of prostate and lung cancer Plan: Continue monitoring in the hospital, as patient has no safe discharge plan in bed wether outside currently Continue with metoprolol as per oil pipeline operator team recommendation will follow the patient closely DVT prophylaxis subcutaneous heparin GI prophylaxis Pepcid Prognosis is guarded Plan - Discharge Summary Discharge Rx Participant: Yes New Discharge Prescriptions: Continue Spironolactone [Aldactone] 25 mg PO DAILY Montelukast [Singulair] 10 mg PO HS amLODIPine [Norvasc] 10 mg PO DAILY Juan Manuel Resendez, B.lactis [Probiotic] 1 cap PO HS Cinnamon Bark [Cinnamon] 1,000 mg PO HS Leuprolide Acetate [Lupron Depot] 1 dose IM Q180D Metoprolol Succinate [Metoprolol Succinate ER] 25 mg PO DAILY Valsartan 40 mg PO DAILY Atorvastatin [Lipitor] 10 mg PO HS Fluticasone/Umeclidin/Vilanter [Trelegy Ellipta 200-62.5-25] 1 puff INHALATION RT-DAILY Benzonatate [Tessalon Perles] 100 mg PO TID PRN PRN Reason: Cough Vit C/E/Zn/Coppr/Lutein/Zeaxan [Preservision Areds 2 Softgel] 1 cap PO DAILY Aspirin EC [Ecotrin Low Dose] 81 mg PO DAILY Potassium Chloride ER [K-Dur 10] 10 meq PO DAILY Magnesium Citrate 200mg 200 mg PO DAILY Multivitamins, Thera [Multivitamin (formulary)] 1 tab PO DAILY Cholecalciferol [Vitamin D3 (25 Mcg = 1000 Iu)] 25 mcg PO DAILY Iron Glycinate 28mg 28 mg PO HS Levalbuterol Nebulized [Xopenex Nebulized] 1.25 mg INHALATION RT-Q6H PRN PRN Reason: Shortness Of Breath Discontinued Levocetirizine Dihydrochloride [Xyzal] 5 mg PO HS Discharge Medication List Cinnamon Bark [Cinnamon] 1,000 mg PO HS 11/11/16 [History] L.acidoph,Paracasei, B.lactis [Probiotic] 1 cap PO HS 11/11/16 [History] Montelukast [Singulair] 10 mg PO HS 11/11/16 [History] Spironolactone [Aldactone] 25 mg PO DAILY 11/11/16 [History] amLODIPine [Norvasc] 10 mg PO DAILY 11/11/16 [History] Leuprolide Acetate [Lupron Depot] 1 dose IM Q180D 11/12/16 [History] Aspirin EC [Ecotrin Low Dose] 81 mg PO DAILY 08/02/23 [History] Atorvastatin [Lipitor] 10 mg PO HS 08/02/23 [History] Benzonatate [Tessalon Perles] 100 mg PO TID PRN 08/02/23 [History] Cholecalciferol [Vitamin D3 (25 Mcg = 1000 Iu)] 25 mcg PO DAILY 08/02/23 [History] Fluticasone/Umeclidin/Vilanter [Trelegy Ellipta 200-62.5-25] 1 puff INHALATION RT-DAILY 08/02/23 [History] Iron Glycinate 28mg 28 mg PO HS 08/02/23 [History] Magnesium Citrate 200mg 200 mg PO DAILY 08/02/23 [History] Metoprolol Succinate [Metoprolol Succinate ER] 25 mg PO DAILY 08/02/23 [History] Multivitamins, Thera [Multivitamin (formulary)] 1 tab PO DAILY 08/02/23 [History] Valsartan 40 mg PO DAILY 08/02/23 [History] Vit C/E/Zn/Coppr/Lutein/Zeaxan [Preservision Areds 2 Softgel] 1 cap PO DAILY 08/02/23 [History] Levalbuterol Nebulized [Xopenex Nebulized] 1.25 mg INHALATION RT-Q6H PRN 08/03/23 [History] Potassium Chloride ER [K-Dur 10] 10 meq PO DAILY 08/03/23 [History] Follow up Appointment(s)/Referral(s): None,Stated [Primary Care Provider] - 1-2 days Jake Alberto MD [STAFF PHYSICIAN] - 1 Week (please follow up the echocardiogram results with your doctor) Activity/Diet/Wound Care/Special Instructions: heart healthy diet activity is restricted till you see your doctor please follow up the echocardiogram results with your doctor Discharge Disposition: HOME SELF-CARE
[2023-08-05] MEDS ORDERED: guaiFENesin-Coden 100-10MG/5ML 10 ML CUP PO PRN (13:31)
[2023-08-05] MEDS ORDERED: polyethylene glycoL 3350 17 GM POWD.PACK PO STA (13:36)
--- NOTE | 2023-08-05 13:36 | P.PN ---
Subjective Progress Note Date: 08/05/23 * 87 years old male with multiple medical problems. He was transferred from [facility] after he visited the emergency room for 3 consecutive day for bradycardia. It is documented in the transfer paper that He has heart fluttering however when I asked the patient he says he was checking his pulse oximetry when he noticed his heart rate recorded and is on 43 but he denies chest pain dizziness lightheadedness, no shortness of breath or coughing or any other symptoms. He denies palpitation.He denies any change in urine or bowel habits. No fever. Patient since admission his heart rate has been stable around 80-86. Restoril vitals are stable His metoprolol 25 mg by mouth daily has been held He is continued on aspirin and Diovan 40 mg. Troponin 2 are negative. Chest x-ray showing minimal atelectasis with no acute process EKG showing normal sinus rhythm at 83 with left bundle-branch block CBC and INR are unremarkable. TSH was checked at [facility] was normal at 1.12. * 08/04/2023 Patient looks comfortable, relaxed at baseline. Denies chest pain or dyspnea. No dizziness. 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 Keep monitoring for now and discharge was held * 08/05/2023: Overnight patient was waiting for a ride and was noted to have episode of bradycardia, however manual pulse was checked heart rate was in 60s, initially metoprolol was held however later impression received metoprolol. On bedside evaluation patient did complain of dizziness. Nursing staff instructed to ambulate patient and give metoprolol to monitor for drop in blood pressure. Discharge was held since patient had symptomatic dizziness. He will continue to monitor if patient remains stable to be discharged home within the next 24 hours patient does complain of cough which could contribution to vasovagal response as well will monitor PHYSICAL EXAMINATION: GENERAL: The patient is alert and oriented x3, not in any acute distress. Well developed, well nourished. HEENT: Pupils are round and equally reacting to light. EOMI. No scleral icterus. No conjunctival pallor. Normocephalic, atraumatic. No pharyngeal erythema. No thyromegaly. CARDIOVASCULAR: S1 and S2 present. Bradycardia briefly noted PULMONARY: Chest is clear to auscultation, no wheezing or crackles. ABDOMEN: Soft, nontender, nondistended, normoactive bowel sounds. No palpable organomegaly. MUSCULOSKELETAL: No joint swelling or deformity. EXTREMITIES: No cyanosis, clubbing, or pedal edema. NEUROLOGICAL: Gross neurological examination did not reveal any focal deficits. SKIN: No rashes. Objective - Vital Signs Vital signs: Vital Signs Temp 97.5 F L 08/05/23 08:00 Pulse 80 08/05/23 11:25 Resp 16 08/05/23 08:00 BP 140/58 08/05/23 11:22 Pulse Ox 95 08/05/23 11:22 FiO2 Intake & Output 08/04/23 08/05/23 08/05/23 18:59 06:59 18:59 Intake Total 490 236 Output Total 800 Balance -310 236 Intake: Intake, IV Titration 140 Amount Sodium Chloride 0.9% 1, 140 000 ml @ 20 mls/hr IV . Q24H [facility] Rx#:[id number] Oral 350 236 Output: Urine 800 Other: Voiding Method Diaper Toilet External Catheter Urinal Diaper # Voids 2 1 # Bowel Movements 0 0 - Labs CBC & Chem 7: 08/03/23 09:29 08/03/23 09:29 Assessment and Plan Assessment: Assessment and plan Intermittent Sinus Bradycardia History of asthma, not an active issue Hypertension. Hyperlipidemia * Patient was seen by cardiology and had echocardiogram completed which showed ejection fraction of 60%. Patient remains on metoprolol will continue to monitor heart rate and potential discharge home with plans to follow-up with cardiology outpatient. 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 and would need beta grayson * In regards to history of asthma continue breathing treatment is needed, continue Singulair * In regards to history of hypertension continue Aldactone, Diovan, metoprolol *
[2023-08-05] MEDS ORDERED: DOCUSATE 100 MG CAP PO STA (13:55)
[2023-08-05] MEDS: SODIUM CHLORIDE 0.9% 1,000 ML IV SCH (18:16)
[2023-08-05] MEDS: ATORVASTATIN 10 MG TAB PO SCH (20:29)
[2023-08-05] MEDS: MONTELUKAST 10 MG TAB PO SCH (20:29)
[2023-08-06 03:50] VITALS: RESP 16
[2023-08-06] MEDS: SYMBICORT 80-4.5 MCG INHALER INHALATION SCH (09:12)
[2023-08-06] MEDS: IPRATROPIUM 0.5 MG/2.5 ML NEBU INHALATION SCH ×2 (09:12→11:48)
[2023-08-06] MEDS: SPIRONOLACTONE 25 MG TAB PO SCH (09:39)
[2023-08-06] MEDS: HEPARIN SODIUM,PORCINE 5,000 UNIT/ML 1 ML VIAL SQ SCH ×2 (09:39→09:45)
[2023-08-06] MEDS: VALSARTAN 40 MG TAB PO SCH (09:39)
[2023-08-06] MEDS: CHOLECALCIFEROL 25 MCG (1000 IU) TABLET PO SCH (09:39)
[2023-08-06] MEDS: FAMOTIDINE 20 MG/2 ML VIAL IV SCH (09:39)
[2023-08-06] MEDS: METOPROLOL SUCCINATE (ER) 25 MG TAB.ER.24H PO SCH (09:39)
[2023-08-06] MEDS: ASPIRIN 81 MG PO SCH (09:39)
[2023-08-06 10:02] VITALS: BP 138/68; TEMP 97.7
--- NOTE | 2023-08-06 10:32 | P.DS ---
Providers Date of admission: 08/05/23 10:26 Expected date of discharge: 08/06/23 Attending physician: Fredo Johnson Primary care physician: Stated None Hospital Course: * 87 years old male with multiple medical problems. He was transferred from [facility] after he visited the emergency room for 3 consecutive day for bradycardia. It is documented in the transfer paper that He has heart fluttering however when I asked the patient he says he was checking his pulse oximetry when he noticed his heart rate recorded and is on 43 but he denies chest pain dizziness lightheadedness, no shortness of breath or coughing or any other symptoms. He denies palpitation.He denies any change in urine or bowel habits. No fever. Patient since admission his heart rate has been stable around 80-86. Restoril vitals are stable His metoprolol 25 mg by mouth daily has been held He is continued on aspirin and Diovan 40 mg. Troponin 2 are negative. Chest x-ray showing minimal atelectasis with no acute process EKG showing normal sinus rhythm at 83 with left bundle-branch block CBC and INR are unremarkable. TSH was checked at [facility] was normal at 1.12. * 08/04/2023 Patient looks comfortable, relaxed at baseline. Denies chest pain or dyspnea. No dizziness. 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 Keep monitoring for now and discharge was held * 08/05/2023: Overnight patient was waiting for a ride and was noted to have episode of bradycardia, however manual pulse was checked heart rate was in 60s, initially metoprolol was held however later impression received metoprolol. On bedside evaluation patient did complain of dizziness. Nursing staff instructed to ambulate patient and give metoprolol to monitor for drop in blood pressure. Discharge was held since patient had symptomatic dizziness. He will continue to monitor if patient remains stable to be discharged home within the next 24 hours patient does complain of cough which could contribution to vasovagal response as well will monitor * 08/06/2023: Patient seen and evaluated bedside, patient remains at baseline heart rate within normal limits continue metoprolol, patient ambulated remains asymmetrically will follow-up with cardiology outpatient PHYSICAL EXAMINATION: GENERAL: The patient is alert and oriented x3, not in any acute distress. Well developed, well nourished. HEENT: Pupils are round and equally reacting to light. EOMI. No scleral icterus. No conjunctival pallor. Normocephalic, atraumatic. No pharyngeal erythema. No thyromegaly. CARDIOVASCULAR: S1 and S2 present. Bradycardia briefly noted PULMONARY: Chest is clear to auscultation, no wheezing or crackles. ABDOMEN: Soft, nontender, nondistended, normoactive bowel sounds. No palpable organomegaly. MUSCULOSKELETAL: No joint swelling or deformity. EXTREMITIES: No cyanosis, clubbing, or pedal edema. NEUROLOGICAL: Gross neurological examination did not reveal any focal deficits. SKIN: No rashes. Assessment: Assessment and plan Intermittent Sinus Bradycardia History of asthma, not an active issue Hypertension. Hyperlipidemia * Patient was seen by cardiology and had echocardiogram completed which showed ejection fraction of 60%. Patient remains on metoprolol will continue to monitor heart rate and discharge home with plans to follow-up with cardiology outpatient. 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 and would need beta grayson * In regards to history of asthma continue breathing treatment is needed, continue Singulair * In regards to history of hypertension continue Aldactone, Diovan, metoprolol Patient Condition at Discharge: Good Plan - Discharge Summary Discharge Rx Participant: Yes New Discharge Prescriptions: Continue Spironolactone [Aldactone] 25 mg PO DAILY Montelukast [Singulair] 10 mg PO HS amLODIPine [Norvasc] 10 mg PO DAILY L.acidoph,Paracasei, B.lactis [Probiotic] 1 cap PO HS Cinnamon Bark [Cinnamon] 1,000 mg PO HS Leuprolide Acetate [Lupron Depot] 1 dose IM Q180D Metoprolol Succinate [Metoprolol Succinate ER] 25 mg PO DAILY Valsartan 40 mg PO DAILY Atorvastatin [Lipitor] 10 mg PO HS Fluticasone/Umeclidin/Vilanter [Trelegy Ellipta 200-62.5-25] 1 puff INHALATION RT-DAILY Benzonatate [Tessalon Perles] 100 mg PO TID PRN PRN Reason: Cough Vit C/E/Zn/Coppr/Lutein/Zeaxan [Preservision Areds 2 Softgel] 1 cap PO DAILY Aspirin EC [Ecotrin Low Dose] 81 mg PO DAILY Potassium Chloride ER [K-Dur 10] 10 meq PO DAILY Magnesium Citrate 200mg 200 mg PO DAILY Multivitamins, Thera [Multivitamin (formulary)] 1 tab PO DAILY Cholecalciferol [Vitamin D3 (25 Mcg = 1000 Iu)] 25 mcg PO DAILY Iron Glycinate 28mg 28 mg PO HS Levalbuterol Nebulized [Xopenex Nebulized] 1.25 mg INHALATION RT-Q6H PRN PRN Reason: Shortness Of Breath Discontinued Levocetirizine Dihydrochloride [Xyzal] 5 mg PO HS Discharge Medication List Cinnamon Bark [Cinnamon] 1,000 mg PO HS 11/11/16 [History] L.acidoph,Paracasei, B.lactis [Probiotic] 1 cap PO HS 11/11/16 [History] Montelukast [Singulair] 10 mg PO HS 11/11/16 [History] Spironolactone [Aldactone] 25 mg PO DAILY 11/11/16 [History] amLODIPine [Norvasc] 10 mg PO DAILY 11/11/16 [History] Leuprolide Acetate [Lupron Depot] 1 dose IM Q180D 11/12/16 [History] Aspirin EC [Ecotrin Low Dose] 81 mg PO DAILY 08/02/23 [History] Atorvastatin [Lipitor] 10 mg PO HS 08/02/23 [History] Benzonatate [Tessalon Perles] 100 mg PO TID PRN 08/02/23 [History] Cholecalciferol [Vitamin D3 (25 Mcg = 1000 Iu)] 25 mcg PO DAILY 08/02/23 [History] Fluticasone/Umeclidin/Vilanter [Trelegy Ellipta 200-62.5-25] 1 puff INHALATION RT-DAILY 08/02/23 [History] Iron Glycinate 28mg 28 mg PO HS 08/02/23 [History] Magnesium Citrate 200mg 200 mg PO DAILY 08/02/23 [History] Metoprolol Succinate [Metoprolol Succinate ER] 25 mg PO DAILY 08/02/23 [History] Multivitamins, Thera [Multivitamin (formulary)] 1 tab PO DAILY 08/02/23 [History] Valsartan 40 mg PO DAILY 08/02/23 [History] Vit C/E/Zn/Coppr/Lutein/Zeaxan [Preservision Areds 2 Softgel] 1 cap PO DAILY 08/02/23 [History] Levalbuterol Nebulized [Xopenex Nebulized] 1.25 mg INHALATION RT-Q6H PRN 08/03/23 [History] Potassium Chloride ER [K-Dur 10] 10 meq PO DAILY 08/03/23 [History] Follow up Appointment(s)/Referral(s): Jake Alberto MD [STAFF PHYSICIAN] - 1 Week (please follow up the echocardiogram results with your doctor) None,Stated [Primary Care Provider] - 1-2 days Activity/Diet/Wound Care/Special Instructions: heart healthy diet activity is restricted till you see your doctor please follow up the echocardiogram results with your doctor Discharge Disposition: HOME SELF-CARE
[2023-08-06 12:11] VITALS: PULSE 60
== END 2023-08-06 13:56 | disposition home or self-care (01) | DRG 310 ==
LOC: EC 18:19 → 6NMEDSUR 19:04 → OBSVTOIN 08-05 10:26
PROVIDERS: ADMIT Hospitalist; ATTEND Hospitalist
DX: R00.1 Bradycardia, unspecified (principal); I10 Essential (primary) hypertension; E78.5 Hyperlipidemia, unspecified; J45.909 Unspecified asthma, uncomplicated; I35.0 Nonrheumatic aortic (valve) stenosis; I44.7 Left bundle-branch block, unspecified; Z85.46 Personal history of malignant neoplasm of prostate; Z85.118 Personal history of other malignant neoplasm of bronchus and lung; Z79.82 Long term (current) use of aspirin; Z79.899 Other long term (current) drug therapy; Z28.21 Immunization not carried out because of patient refusal; Z90.2 Acquired absence of lung [part of]
CPT/HCPCS: 71045; 80053; 83735; 84100; 84439; 84443; 84484; 85025; 85610; 93005; 93306; 94640; 94760; 96374; 96376; 99291